=== PATIENT | female | born 1960 ===

== ENCOUNTER 2025-04-01 05:01 | Day surgery (SDC) | payer OTHER ==
[2025-03-29 10:00] VITALS: BP 121/79
[2025-03-29 11:14] LABS: BASO % 0.7 % (0.1-1.2); EOS # 0.02 (0.04-0.54); EOS % 0.7 % (0.7-7.0); LYMPH # 1.40 (1.18-3.74); LYMPH % 48.6 % (19.3-53.1); MEAN PLATELET VOLUME 10.00 fl (9.4-12.4); MONO # 0.11 (0.24-0.82); MONO % 3.8 % (4.7-12.5); NEUT # 1.31 (1.56-6.13); NEUT % 45.5 % (34.0-71.1); RED CELL DISTRIBUTION WIDTH 13.2 % (11.6-14.4)
[2025-03-29 11:30] LABS: INR 1.0
[2025-03-29 12:19] LABS: ALT/SGPT 38.0 U/L (12-78); AST/SGOT 22.0 U/L (15-37); BILIRUBIN TOTAL 0.67 mg/dL (0.3-1.2); BUN CREA RATIO 17.0 (7.0-25.0); CREATININE SERUM 0.76 mg/dL (0.55-1.02); GFR 76.86; GLOBULINA 3.5 G/DL (2.4-3.5); GLUCOSE FASTING 117.0 mg/dL (65-100); OSMOLALITY SERUM 284.0 MOSM/KG (275-295)
[~2025-04-01] VITALS: Ht 157.5 cm; Wt 76.2 kg
[~2025-04-01 05:01] MED LIST: ALLEGRA ALLERG180 MG PO; CYMBALTA30 MG PO; FLONASE16 GM; GRALISE600 MG PO; KEPPRA XR750 MG PO; LINZESS145 MCG PO; LIPITOR20 MG PO; NORVASC5 MG PO; SYNTHROID50 MCG PO; ZYRTEC10 M3 PO
== END 2025-04-01 11:40 | disposition home or self-care (01) ==
LOC: CIR.AMB 05:01
PROVIDERS: ATTEND Internal Medicine
DX: C16.9 Malignant neoplasm of stomach, unspecified (principal); K31.89 Other diseases of stomach and duodenum; Z88.6 Allergy status to analgesic agent; Z88.8 Allergy status to other drugs, medicaments and biological substances